=== PATIENT | female | born 1970 | race Caucasian/White ===

== ENCOUNTER 2023-09-27 15:36 | Emergency (ER) | payer OTHER ==
[2023-09-27] MEDS: SODIUM CHLORIDE 0.9% 500 ML INFUS.BAG IV ONE (15:45)
[2023-09-27] MEDS ORDERED: FAMOTIDINE 20 MG/50 ML IVPB 20 MG/50 ML MG IVPB ONE (15:47)
[2023-09-27] MEDS ORDERED: DEXAMETHASONE SOD PHOSPHATE 10 MG/1 ML VIAL ONE (15:48)
[2023-09-27 15:50] VITALS: TEMP 98.8; BMI 27.8
[2023-09-27] MEDS: DEXAMETHASONE SOD PHOSPHATE 10 MG/1 ML VIAL IVPUSH ONE (15:54)
[2023-09-27] MEDS: FAMOTIDINE 20 MG/50 ML IVPB 20 MG/50 ML MG IVPB ONE (15:56)
[2023-09-27 16:17] LABS: HEMATOCRIT 45.6 % (32.4-45.2); HEMOGLOBIN 15.2 G/dL (10.7-15.3); MCH 30.6 pg (25.7-33.7); MCHC 33.4 g/dl (32.0-36.0); MEAN CELL VOLUME 91.6 fl (80-96); MEAN PLT VOLUME 8.7 fl (7.5-11.1); PLATELET COUNT 254.7 10^3/uL (134-434); RBC 4.98 10^6/uL (3.60-5.2); RDW 13.8 % (11.6-15.6); WHITE BLOOD COUNT 10.2 10^3/uL (4.0-10.8)
[2023-09-27] MEDS ORDERED: ONDANSETRON 4 MG/2 ML VIAL ONE (16:23)
[2023-09-27] MEDS: ONDANSETRON 4 MG/2 ML VIAL IVPUSH ONE (16:25)
[2023-09-27 16:35] LABS: ALBUMIN 4.4 g/dl (3.4-5.0); BILIRUBIN,TOTAL 0.4 mg/dl (0.2-1); CALCIUM 9.3 mg/dl (8.5-10.1); CREATININE 0.8 mg/dl (0.6-1.3); POTASSIUM 3.7 mmol/L (3.5-5.1); TOT PROT 6.9 g/dl (6.4-8.2)
[2023-09-27 16:55] LABS: PLATELET ESTIMATE ADEQUATE
[2023-09-27 17:29] VITALS: BP 145/75; PULSE 87; RESP 16
== END 2023-09-27 17:40 | disposition home or self-care (01) ==
LOC: FER 15:36
PROC: 3E033GC Introduction of Other Therapeutic Substance into Peripheral Vein, Percutaneous Approach (ICD-10-PCS; principal; 2023-09-27)
PROC: 3E033GC Introduction of Other Therapeutic Substance into Peripheral Vein, Percutaneous Approach (ICD-10-PCS; 2023-09-27)
PROC: 3E033GC Introduction of Other Therapeutic Substance into Peripheral Vein, Percutaneous Approach (ICD-10-PCS; 2023-09-27)
PROC: 3E033GC Introduction of Other Therapeutic Substance into Peripheral Vein, Percutaneous Approach (ICD-10-PCS; 2023-09-27)
DX: T78.40XA Allergy, unspecified, initial encounter (principal); R20.2 Paresthesia of skin; R10.9 Unspecified abdominal pain; R11.0 Nausea; R06.02 Shortness of breath
CPT/HCPCS: 36415; 80053; 85025; 99284-25; J1100